=== PATIENT | female | born 1940 | race Caucasian/White ===

== ENCOUNTER 2019-04-19 15:03 | Outpatient (REF) | payer SELFPAY ==
[2019-04-19 17:29] LABS: Estmated Average Glucose 114; Hemoglobin A1C 5.6 % (4.0-6.0)
[2019-04-19 17:53] LABS: Chol HDL Ratio 4.32 mg/dL (0.0-4.40); Cholesterol 246 mg/dL (0-200); Glucose 102 mg/dL (65-115); HDL Cholesterol 57 mg/dL (60-100); LDL Cholesterol Calculated 154 mg/dL (50-129); Triglycerides 175 mg/dL (0-150)
== END 2019-04-19 15:04 | disposition home or self-care (01) ==
LOC: LAB 15:03
PROVIDERS: Visit Provider Dermatology
DX: Z13.9 Encounter for screening, unspecified (principal)
CPT/HCPCS: 80061; 82947; 83036

== ENCOUNTER → 2022-04-02 09:59 | Outpatient (BNVA) | payer SELFPAY | PROVIDERS: PCP Nurse Practitioner Family; Referring Provider Family Medicine; Visit Provider Family Medicine | DX: Z13.6 Encounter for screening for cardiovascular disorders (principal) | CPT/HCPCS: 80061; 82947; 83036 ==